=== PATIENT | male | born 1975 | race Two or more races ===

== ENCOUNTER 2017-09-26 23:28 | Emergency (ER) | payer SELFPAY ==
[~2017-09-26] VITALS: Ht 175.3 cm; Wt 85.3 kg
[2017-09-27] MEDS ORDERED: LORazepam 1MG TABLET PO ONE
[2017-09-27] MEDS ORDERED: ONDANSETRON ODT 4 MG PO ONE
[2017-09-27] MEDS ORDERED: ONDANSETRON ODT 4 MG ONE (00:01)
[2017-09-27] MEDS ORDERED: LORazepam 1MG TABLET ONE (00:02)
[2017-09-27 00:12] LABS: HEMATOCRIT 42.7 % (39.2-51.8); HEMOGLOBIN 14.6 g/dL (13.7-18.0); WHITE BLOOD COUNT 12.1 x10^3/uL (3.4-10)
[2017-09-27 00:21] LABS: BLOOD UREA NITROGEN 19 mg/dL (7-18)
[2017-09-27 00:26] LABS: IS PT STATUS REG ER OR PRE ER? YES
[2017-09-27 01:09] LABS: DAU SCREEN DISCLAIMER
[2017-09-27 02:00] VITALS: BP 114/72
== END 2017-09-27 02:58 | disposition home or self-care (01) ==
LOC: ED 09-27 02:52
DX: R07.89 Other chest pain (principal); R11.2 Nausea with vomiting, unspecified; F10.10 Alcohol abuse, uncomplicated; F12.10 Cannabis abuse, uncomplicated; F14.10 Cocaine abuse, uncomplicated
CPT/HCPCS: 36415; 71010; 72125; 80048; 80307; 84484; 85025; 93005; 99285; Q0162; G0479